=== PATIENT | female | born 1970 | race Caucasian/White ===

== ENCOUNTER → 2018-10-16 14:48 | Outpatient (CLI) | payer BC, SELFPAY ==
--- NOTE | 2018-10-16 14:52 | BI_ITS ---
MAMMOGRAPHY - BILATERAL SCREENING REASON FOR EXAM: Female, 47 years old. Routine annual screening examination. PERTINENT HISTORY: Sister with breast cancer. Mother with breast cancer. Grandmother with breast cancer. TECHNIQUE: Digital bilateral breast tram (3D mammographic acquisition) in the CC and MLO projections. 2-D mediolateral oblique (MLO) and craniocaudad (CC) views of both breasts were obtained. CAD: Full Field Digital Mammography with Computer Added Detection was performed. COMPARISON: Comparison is made with prior study dated May 05, 2017 and August 12, 2017. FINDINGS: Breast Composition: The breasts are extremely dense, which lowers the sensitivity of mammography. There are no dominant masses or suspicious calcifications. Stable appearance of the scattered bilateral microcalcifications worse in the right breast. No other significant abnormalities are identified. There has been no significant change since the prior study. BI/SCREEN MAMM (CAD) W/TRAM BILAT IMPRESSION: Stable bilateral screening mammogram. Yearly follow-up mammogram recommended. (A) ASSESSMENT CATEGORY: BIRADS Category 2: Benign. A letter regarding these results will be sent to the patient by the facility within 30 days. Approximately 10% of breast cancers are not detected by mammography. A normal mammogram should not delay biopsy of a clinically suspicious abnormality. [id number] Electronically Signed: Ranjit Vásquez, at 16:01 EDT , Service support ,
== END ==
PROVIDERS: Family Provider Family Medicine; PCP Family Medicine; Referring Provider Surgery; Visit Provider Surgery
DX: Z12.31 Encounter for screening mammogram for malignant neoplasm of breast (principal)
CPT/HCPCS: 77063; 77067

== ENCOUNTER → 2018-11-24 | Outpatient (CLI) | payer BC, SELFPAY ==
[2018-11-24 13:56] LABS: Hematocrit 40.1 % (37-47); Hemoglobin 13.3 g/dl (12.0-15.0); Mean Corp Hgb Conc 33.2 g/gl (32-36); Mean Corpuscular Hgb 30.4 pg (27.0-32.0); Mean Corpuscular Volume 91.6 fL (81-99); Mean Platelet Vol. 9.7 fl (6.2-12.0); Platelet Count 303 K/mm3 (150-450); RBC Distribution Width CV 12.4 % (11.6-14.6); RBC Distribution Width SD 41.8 fl (35.1-43.9); Red Blood Count 4.38 M/mm3 (4.2-5.4)
[2018-11-24 14:04] LABS: Scan Indicated on CBC? Y/N NO
[2018-11-24 14:34] LABS: Hemoglobin A1c 5.1 % (4.2-6.3)
[2018-11-24 14:48] LABS: Estradiol 327.2 pg/mL; Free T3 2.6 pg/mL (2.18-3.98); T4 Free Direct 0.87 ng/dL (0.76-1.46)
[2018-11-25 08:45] LABS: DHEA Sulfate 70.6 ug/dL (41.2-243.7)
[2018-11-28 16:55] LABS: HPV Reflexed? NOT INDICATED
== END | disposition home or self-care (01) ==
LOC: WOBLAB 11:42
PROVIDERS: Visit Provider Obstetrics & Gynecology
DX: L65.9 Nonscarring hair loss, unspecified (principal); R53.83 Other fatigue; Z12.4 Encounter for screening for malignant neoplasm of cervix
CPT/HCPCS: 36415; 82533; 82627; 82670; 83036; 84144; 84403; 84439; 84443; 84481; 85027; 88175; 82626; G0145

== ENCOUNTER → 2018-12-04 15:39 | Outpatient (CLI) | payer BC, SELFPAY ==
[2018-12-04 17:36] LABS: Estradiol 158.2 pg/mL
[2018-12-04 17:42] LABS: Progesterone Level 12.02 ng/mL (See Comment)
[2018-12-06 13:26] LABS: Sex Hormone-binding Globulin 148.9 nmol/L (17.3-125.0)
== END ==
PROVIDERS: Visit Provider Obstetrics & Gynecology
DX: R10.84 Generalized abdominal pain (principal)
CPT/HCPCS: 36415; 82670; 84144; 84270; 84403

== ENCOUNTER → 2018-12-14 | Outpatient (CLI) | payer BC, SELFPAY ==
[2018-12-14 17:59] LABS: Estradiol 31.2 pg/mL; Follicle Stimulating Hormone 15.2 mIU/mL
== END | disposition home or self-care (01) ==
PROVIDERS: Visit Provider Obstetrics & Gynecology
DX: N94.3 Premenstrual tension syndrome (principal)
CPT/HCPCS: 36415; 82670; 83001

== ENCOUNTER → 2018-12-29 | Outpatient (CLI) | payer BC, SELFPAY ==
[2018-12-29 11:11] LABS: Insulin 6.8 mU/L (2.6-37.6)
[2018-12-29 11:43] LABS: Estradiol 130.2 pg/mL; Free T3 2.7 pg/mL (2.18-3.98); Glucose 74 mg/dL (74-106); Thyroid Stim Hormone (TSH) 1.01 uIU/mL (0.358-3.74)
[2018-12-31 13:29] LABS: DHEA Sulfate 850.5 ug/dL (41.2-243.7)
== END | disposition home or self-care (01) ==
LOC: WOBLAB 10:06
PROVIDERS: Visit Provider Obstetrics & Gynecology
DX: N94.3 Premenstrual tension syndrome (principal)
CPT/HCPCS: 36415; 82533; 82627; 82670; 82947; 83036; 83525; 84144; 84403; 84439; 84443; 84481; 82626

== ENCOUNTER → 2019-02-06 | Outpatient (CLI) | payer BC, SELFPAY ==
[2019-02-06 14:42] LABS: Estradiol 89.6 pg/mL; Follicle Stimulating Hormone 6.7 mIU/mL
[2019-02-07 11:04] LABS: DHEA Sulfate 71.6 ug/dL (41.2-243.7)
== END | disposition home or self-care (01) ==
LOC: WOBLAB 13:09
PROVIDERS: Visit Provider Obstetrics & Gynecology
DX: R10.84 Generalized abdominal pain (principal); R79.89 Other specified abnormal findings of blood chemistry
CPT/HCPCS: 36415; 82627; 82670; 83001; 82626

== ENCOUNTER → 2019-10-18 10:55 | Outpatient (CLI) | payer BC, SELFPAY ==
--- NOTE | 2019-10-18 10:58 | BI_ITS ---
MAMMOGRAPHY - BILATERAL SCREENING REASON FOR EXAM: Female, 48 years old. Routine annual screening examination. PERTINENT HISTORY: Sister with breast cancer. Mother with breast cancer. Grandmother with breast cancer. TECHNIQUE: Digital bilateral breast tram (3D mammographic acquisition) in the CC and MLO projections. 2-D mediolateral oblique (MLO) and craniocaudad (CC) views of both breasts were obtained. CAD: Full Field Digital Mammography with Computer Added Detection was performed. COMPARISON: Comparison is made with prior examination dated October 16, 2018 and August 12, 2017. FINDINGS: Breast Composition: The breasts are extremely dense, which lowers the sensitivity of mammography. There are no dominant masses or suspicious calcifications. Stable scattered calcifications. No other significant abnormalities are identified. There has been no significant change since the prior study. BI/SCREEN MAMM (CAD) W/TRAM BILAT IMPRESSION: Stable bilateral screening mammogram. Yearly follow-up mammogram recommended. (A) ASSESSMENT CATEGORY: BIRADS Category 2: Benign. A letter regarding these results will be sent to the patient by the facility within 30 days. Approximately 10% of breast cancers are not detected by mammography. A normal mammogram should not delay biopsy of a clinically suspicious abnormality. [id number] Electronically Signed: Ranjit Vásquez, at 13:49 EDT , Service support ,
== END ==
PROVIDERS: PCP Family Medicine; Referring Provider Obstetrics & Gynecology; Visit Provider Obstetrics & Gynecology
DX: Z12.31 Encounter for screening mammogram for malignant neoplasm of breast (principal)
CPT/HCPCS: 77063; 77067

== ENCOUNTER → 2019-12-07 11:16 | Outpatient (CLI) | payer BC, SELFPAY ==
--- NOTE | 2019-12-07 11:30 | MRI_ITS ---
STUDY: BILATERAL BREAST MR WITHOUT AND WITH CONTRAST REASON FOR EXAM: Female, 49 years old. Dense breast tissue with family history of breast cancer. TECHNIQUE: Multi-sequence multi-echo imaging of both breasts was performed with a dedicated breast coil. T1-weighted and T2-weighted images were performed before the administration of contrast. T1-weighted images were also performed after the administration of 11 mL of Dotarem contrast IV without complications. COMPARISON: Mammograms dated October 18, 2019 and October 16, 2018. FINDINGS: RIGHT BREAST: The breast tissue is heterogeneously dense with moderate background enhancement. Multiple cysts randomly distributed. There are no abnormal enhancing masses or areas of non-mass enhancement in the right breast. LEFT BREAST: The breast tissue is heterogeneously dense with moderate background enhancement. Multiple cysts randomly distributed. There are no abnormal enhancing masses or areas of non-mass enhancement in the left breast. There are no enlarged or abnormal lymph nodes. There is no abnormality in the visualized regions of the chest or liver. MRI/Breast Bilateral W/O and W IMPRESSION: Dense fibroglandular tissue with multiple bilateral cysts. Yearly follow-up mammogram recommended. CATEGORY: BIRADS Category 2: Benign. A letter regarding these results will be sent to the patient by the facility within 30 days. Electronically Signed: Yaron Stark MD at 14:13 EDT , Service support ,
== END ==
PROVIDERS: PCP Family Medicine; Referring Provider Obstetrics & Gynecology; Visit Provider Obstetrics & Gynecology
DX: Z80.3 Family history of malignant neoplasm of breast (principal)
CPT/HCPCS: 77049; A9575; A4216; C8908

== ENCOUNTER → 2020-09-05 09:44 | Outpatient (CLI) | payer BC, SELFPAY ==
[2020-09-05 11:55] LABS: Progesterone Level 1.83 ng/mL (See Comment)
[2020-09-05 11:58] LABS: SARS-COV-2 TOTAL ABS Reactive (Nonreactive)
[2020-09-05 11:59] LABS: Estradiol 186.1 pg/mL; Follicle Stimulating Hormone 3.8 mIU/mL; Free T3 3.1 pg/mL (2.18-3.98); Luteinizing Hormone 3.1 mIU/mL; T4 Free Direct 0.83 ng/dL (0.76-1.46); Thyroid Stim Hormone (TSH) 0.97 uIU/mL (0.358-3.74)
[2020-09-06 11:51] LABS: Sex Hormone-binding Globulin 94.7 nmol/L (17.3-125.0)
== END ==
PROVIDERS: PCP Family Medicine; Visit Provider Obstetrics & Gynecology
DX: Z20.828 Contact with and (suspected) exposure to other viral communicable diseases (principal); E03.9 Hypothyroidism, unspecified; N92.6 Irregular menstruation, unspecified
CPT/HCPCS: 36415; 82627; 82670; 83001; 83002; 84144; 84270; 84403; 84439; 84443; 84481; 86769; 82626

== ENCOUNTER → 2021-01-06 12:12 | Outpatient (CLI) | payer BC, SELFPAY ==
--- NOTE | 2021-01-06 12:14 | BI_ITS ---
MAMMOGRAPHY - BILATERAL SCREENING REASON FOR EXAM: Female, 50 years old. Routine annual screening examination. PERTINENT HISTORY: Sister with breast cancer. Mother with breast cancer. Grandmother with breast cancer. TECHNIQUE: Digital bilateral breast tram (3D mammographic acquisition) in the CC and MLO projections. 2-D mediolateral oblique (MLO) and craniocaudad (CC) views of both breasts were obtained. CAD: Full Field Digital Mammography with Computer Added Detection was performed. COMPARISON: Comparison is made with prior study dated 10/18/2019 and 10/16/2018. FINDINGS: Breast Composition: The breasts are extremely dense, which lowers the sensitivity of mammography. There is a 7.8 mm x 12.5 mm nodule in the retroareolar region of the left breast. A similar appearing nodule measuring 7.2 mm x 8 mm is also seen in the retroareolar region of the left breast. Correlation with ultrasound is recommended. No other significant abnormalities are identified. BI/SCRN MAMM (CAD)W/TRAM BILAT IMPRESSION: There are 2 well-defined nodules in the retroareolar region of the left breast as described. Correlation with ultrasound is recommended. ASSESSMENT CATEGORY: BIRADS Category 0: Incomplete. Need additional imaging evaluation. A letter regarding these results will be sent to the patient by the facility within 30 days. Approximately 10% of breast cancers are not detected by mammography. A normal mammogram should not delay biopsy of a clinically suspicious abnormality. [id number] Electronically Signed: Ranjit Vásquez MD at 14:41 EDT , Service support ,
== END ==
PROVIDERS: PCP Family Medicine; Referring Provider Obstetrics & Gynecology; Visit Provider Obstetrics & Gynecology
DX: Z12.31 Encounter for screening mammogram for malignant neoplasm of breast (principal)
CPT/HCPCS: 77063; 77067

== ENCOUNTER → 2021-01-07 13:04 | Outpatient (CLI) | payer BC, SELFPAY ==
--- NOTE | 2021-01-07 13:06 | US_ITS ---
STUDY: ULTRASOUND BREAST - LEFT REASON FOR EXAM: Female, 50 years old. Abnormal screening mammogram. TECHNIQUE: Axial and longitudinal images of the LEFT breast were performed with a high resolution ultrasound transducer. # OF IMAGES: 26 COMPARISON: Comparison is made with prior mammogram dated 01/06/2021 and prior sonogram dated 05/31/2017. FINDINGS: LEFT Breast: Multiple cysts are seen in the retroareolar region of the breast. The largest cyst measures 1.4 cm x 1.6 x 0.9 cm. This is at the 11 o''clock position of the breast at the 1 cm from the nipple. There is also evidence of a 1 cm x 1.2 cm x 0.6 cm cyst at the 3 o''clock position of the breast at 1 cm from the nipple. US/Breast Limited Unilateral IMPRESSION: Retroareolar cysts. ASSESSMENT CATEGORY: BIRADS Category 2: Benign. A letter regarding these results will be sent to the patient by the facility within 30 days. Electronically Signed: Ranjit Vásquez MD at 14:08 EDT , Service support ,
== END ==
PROVIDERS: PCP Family Medicine; Referring Provider Obstetrics & Gynecology; Visit Provider Obstetrics & Gynecology
DX: N63.20 Unspecified lump in the left breast, unspecified quadrant (principal)
CPT/HCPCS: 76642

== ENCOUNTER → 2021-05-06 16:49 | Outpatient (CLI) | payer BC, SELFPAY ==
[2021-05-08 22:06] LABS: Chlamydia By Nucleic Acid AMP Negative (Negative)
[2021-05-08 22:40] LABS: Gonococcus By Nucleic Acid AMP Negative (Negative)
[2021-05-12 16:59] LABS: HPV APTIMA, High Risk Negative (Negative)
[2021-05-12 17:00] LABS: HPV Reflexed? YES, CHARGE PATIENT
== END ==
PROVIDERS: PCP Family Medicine; Visit Provider Obstetrics & Gynecology
DX: Z12.4 Encounter for screening for malignant neoplasm of cervix (principal); Z11.3 Encounter for screening for infections with a predominantly sexual mode of transmission
CPT/HCPCS: 87491; 87591; 87624; 88175; G0145

== ENCOUNTER → 2021-06-19 12:44 | Outpatient (CLI) | payer BC, SELFPAY ==
--- NOTE | 2021-06-19 13:00 | MRI_ITS ---
STUDY: BILATERAL BREAST MR WITHOUT AND WITH CONTRAST REASON FOR EXAM: Female, 50 years old. Fibroadenosis. Multiple cysts. Family history of breast cancer, mother at age 65 and sister at age 50. Paternal and maternal grandmothers in seventh decade. TECHNIQUE: Multi-sequence multi-echo imaging of both breasts was performed with a dedicated breast coil. T1-weighted and T2-weighted images were performed before the administration of contrast. T1-weighted images were also performed after the administration of 11 cc of Dotarem contrast without complications. COMPARISON: Screening mammogram dated 01/06/2021. Left breast ultrasound dated 01/08/2020. FINDINGS: RIGHT BREAST: The breast tissue is heterogeneously dense with moderate background enhancement. Multiple cysts of varying size, the largest of which is at the 12 o''clock position. There are no abnormal enhancing masses or areas of non-mass enhancement in the right breast. LEFT BREAST: The breast tissue is heterogeneously dense with moderate background enhancement. Multiple cysts of varying size. There are no abnormal enhancing masses or areas of non-mass enhancement in the left breast. There are no enlarged or abnormal lymph nodes. There is no abnormality in the visualized regions of the chest or liver. MRI/Breast Bilateral W/O and W IMPRESSION: Multiple cysts of varying size bilaterally. No other abnormality. Yearly screening mammogram recommended. CATEGORY: BIRADS Category 2: Benign. A letter regarding these results will be sent to the patient by the facility within 30 days. Electronically Signed: Yaron Stark MD at 10:45 EST , Service support ,
== END ==
PROVIDERS: PCP Family Medicine; Visit Provider Obstetrics & Gynecology
DX: N60.29 Fibroadenosis of unspecified breast (principal); Z80.3 Family history of malignant neoplasm of breast
CPT/HCPCS: 77049; A9575; C8908

== ENCOUNTER → 2021-12-18 | Outpatient (CLI) | payer BC, SELFPAY ==
[2021-12-25 08:15] LABS: HPV APTIMA, High Risk Negative (Negative)
== END | disposition home or self-care (01) ==
LOC: LABSPEC 14:22
PROVIDERS: PCP Family Medicine; Visit Provider Obstetrics & Gynecology
DX: Z12.4 Encounter for screening for malignant neoplasm of cervix (principal)
CPT/HCPCS: 87624; 88175; G0145

== ENCOUNTER → 2022-01-08 | Outpatient (CLI) | payer BC, SELFPAY ==
--- NOTE | 2022-01-08 11:20 | BI_ITS ---
MAMMOGRAPHY - BILATERAL SCREENING REASON FOR EXAM: Female, 51 years old. Routine annual screening examination. PERTINENT HISTORY: Sister with breast cancer. Mother with breast cancer. Grandmother with breast cancer. TECHNIQUE: Digital bilateral breast tram (3D mammographic acquisition) in the CC and MLO projections. 2-D mediolateral oblique (MLO) and craniocaudad (CC) views of both breasts were obtained. CAD: Full Field Digital Mammography with Computer Added Detection was performed. COMPARISON: Comparison is made with prior study dated 01/06/2021 and 10/18/2019. FINDINGS: Breast Composition: The breasts are extremely dense, which lowers the sensitivity of mammography. There is a 1.2 cm well-defined nodular density in the upper the lateral aspect of the left breast. Prior MRI demonstrated cysts. No other significant abnormalities are identified. There has been no significant change since the prior study. BI/SCRN MAMM (CAD)W/TRAM BILAT IMPRESSION: Stable bilateral screening mammogram. Yearly follow-up mammogram recommended. (A) ASSESSMENT CATEGORY: BIRADS Category 2: Benign. A letter regarding these results will be sent to the patient by the facility within 30 days. Approximately 10% of breast cancers are not detected by mammography. A normal mammogram should not delay biopsy of a clinically suspicious abnormality. [id number] Electronically Signed: Ranjit Vásquez MD at 12:22 EDT ,
== END | disposition home or self-care (01) ==
LOC: OPBI 11:15
PROVIDERS: PCP Family Medicine; Referring Provider Obstetrics & Gynecology; Visit Provider Obstetrics & Gynecology
DX: Z12.31 Encounter for screening mammogram for malignant neoplasm of breast (principal)
CPT/HCPCS: 77063; 77067

== ENCOUNTER → 2022-06-04 | Outpatient (CLI) | payer BC, SELFPAY ==
--- NOTE | 2022-06-04 11:30 | MRI_ITS ---
STUDY: BILATERAL BREAST MR WITHOUT AND WITH CONTRAST REASON FOR EXAM: Female, 51 years old. Family history of breast cancer in mother and grandmother. Dense breasts. TECHNIQUE: Multi-sequence multi-echo imaging of both breasts was performed with a dedicated breast coil. T1-weighted and T2-weighted images were performed before the administration of contrast. T1-weighted images were also performed after the intravenous administration of 12ml of Clariscan. COMPARISON: Bilateral mammogram dated January 08, 2022. Prior breast MR dated June 19, 2021. FINDINGS: RIGHT BREAST: The breast tissue is The breasts are heterogenously dense, which may obscure small masses with moderate background enhancement. Multiple cysts of varying size, the largest of which is at approximately the 12:00 position. There are no abnormal enhancing masses or areas of non-mass enhancement in the right breast. LEFT BREAST: The breast tissue is The breasts are heterogenously dense, which may obscure small masses with moderate background enhancement. Multiple cysts of varying sizes, the largest of which is at the 12:00 position and measures approximately 11 mm in widest diameter. There are no abnormal enhancing masses or areas of non-mass enhancement in the left breast. There are no enlarged or abnormal lymph nodes. There is no abnormality in the visualized regions of the chest or liver. MRI/Breast Bilateral W/O and W IMPRESSION: Dense fibroglandular tissue with moderate background enhancement. Multiple cysts of varying size in both breasts. No abnormal enhancing masses and no suspicious axillary adenopathy. Yearly follow-up mammogram recommended. Screening mammogram can be alternated with breast MRI with contrast, given the patient''s strong family history of breast cancer. CATEGORY: BIRADS Category 2: Benign. A letter regarding these results will be sent to the patient by the facility within 30 days. Electronically Signed: Yaron Stark, at 10:16 EST ,
== END | disposition home or self-care (01) ==
LOC: MRI 11:18
PROVIDERS: PCP Family Medicine; Visit Provider Obstetrics & Gynecology
DX: Z12.39 Encounter for other screening for malignant neoplasm of breast (principal); Z84.89 Family history of other specified conditions
CPT/HCPCS: 77049; A9575; A4216; C8908

== ENCOUNTER → 2023-01-31 | Outpatient (CLI) | payer BC, SELFPAY ==
--- NOTE | 2023-01-31 13:20 | BI_ITS ---
MAMMOGRAPHY - BILATERAL SCREENING REASON FOR EXAM: Female, 52 years old. Routine annual screening examination. PERTINENT HISTORY: Sister with breast cancer. Mother with breast cancer. Grandmother with breast cancer. TECHNIQUE: Digital bilateral breast tram (3D mammographic acquisition) in the CC and MLO projections. 2-D mediolateral oblique (MLO) and craniocaudad (CC) views of both breasts were obtained. CAD: Full Field Digital Mammography with Computer Added Detection was performed. COMPARISON: Comparison is made with prior study dated January 08, 2022 and January 06, 2021. FINDINGS: Breast Composition: The breasts are extremely dense, which lowers the sensitivity of mammography. There are no dominant masses or suspicious calcifications. Stable 1.2 cm well-defined nodule in the upper lateral aspect of the left breast. This was demonstrated to be a cyst on prior MRI examination. No other significant abnormalities are identified. There has been no significant change since the prior study. BI/SCRN MAMM (CAD)W/TRAM BILAT IMPRESSION: Stable bilateral screening mammogram. Yearly follow-up mammogram recommended. (A) ASSESSMENT CATEGORY: BIRADS Category 2: Benign. A letter regarding these results will be sent to the patient by the facility within 30 days. Approximately 10% of breast cancers are not detected by mammography. A normal mammogram should not delay biopsy of a clinically suspicious abnormality. [id number] Electronically Signed: Ranjit Vásquez MD at 15:19 EDT ,
== END | disposition home or self-care (01) ==
LOC: OPBI 13:18
PROVIDERS: PCP Family Medicine; Referring Provider Obstetrics & Gynecology; Visit Provider Obstetrics & Gynecology
DX: Z12.31 Encounter for screening mammogram for malignant neoplasm of breast (principal)
CPT/HCPCS: 77063; 77067

== ENCOUNTER → 2023-09-22 | Outpatient (CLI) | payer MEDICAID, SELFPAY ==
[2023-09-22 12:25] LABS: Insulin 7.8 mU/L (2.6-37.6); Vitamin D,25 Hydroxy 73.7 ng/mL
[2023-09-22 12:28] LABS: Hemoglobin A1c 5.7 % (3.8-5.6)
[2023-09-22 12:39] LABS: CRP < 2.90 mg/L (0.0-3.0); Cholesterol 203 mg/dL (200); Glucose 86 mg/dL (74-106); High Density Lipoprotein 73 mg/dL; Rheumatoid Factor < 10.0 IU/mL (<15); Triglycerides 64 mg/dL; Very Low Density Lipoprotein 13 mg/dL (5-40)
[2023-09-22 12:46] LABS: Erythrocyte Sedimentation Rate 2 mm/hr (0-30)
== END | disposition home or self-care (01) ==
PROVIDERS: PCP Family Medicine; Referring Provider Obstetrics & Gynecology; Visit Provider Obstetrics & Gynecology
DX: E55.9 Vitamin D deficiency, unspecified (principal); M25.542 Pain in joints of left hand; M25.541 Pain in joints of right hand; Z13.1 Encounter for screening for diabetes mellitus; Z13.220 Encounter for screening for lipoid disorders
CPT/HCPCS: 36415; 80061; 82306; 82533; 82947; 83036; 83525; 85652; 86140; 86431

== ENCOUNTER → 2023-09-29 | Outpatient (CLI) | payer MEDICAID, SELFPAY ==
--- NOTE | 2023-09-29 13:23 | MRI_ITS ---
STUDY: BILATERAL BREAST MR WITHOUT AND WITH CONTRAST REASON FOR EXAM: Female, 52 years old. Family history of breast neoplasm. Breast cancer in mother and grandmother. Dense fibroglandular tissue on mammography. TECHNIQUE: Multi-sequence multi-echo imaging of both breasts was performed with a dedicated breast coil. T1-weighted and T2-weighted images were performed before the administration of contrast. T1-weighted images were also performed after the intravenous administration of 13 cc of Clariscan contrast. COMPARISON: Bilateral screening mammogram dated 01/31/2023 and prior breast MRI with contrast dated 06/04/2022. FINDINGS: RIGHT BREAST: Markedly dense fibroglandular tissue with minimal background enhancement. No abnormal enhancing masses or areas of non-mass enhancement in the right breast. LEFT BREAST: Markedly dense fibroglandular tissue with minimal background enhancement. No abnormal enhancing masses or areas of non-mass enhancement in the right breast. No enlarged or abnormal lymph nodes. No abnormality in the visualized regions of the chest or liver. MRI/Breast Bilateral W/O and W IMPRESSION: Stable markedly dense fibroglandular tissue with minimal background enhancement. No other abnormality present. Yearly follow-up breast MRI without and with contrast for surveillance would be appropriate, given the patient''s strong family history of breast cancer. CATEGORY: BIRADS Category 2: Benign. A letter regarding these results will be sent to the patient by the facility within 30 days. Electronically Signed: Yaron Stark MD at 13:25 EST ,
== END | disposition home or self-care (01) ==
LOC: MRI 13:21
PROVIDERS: Visit Provider Obstetrics & Gynecology
DX: Z80.3 Family history of malignant neoplasm of breast (principal)
CPT/HCPCS: 77049; A9575; C8908

== ENCOUNTER → 2024-03-15 | Outpatient (CLI) | payer MEDICAID, SELFPAY ==
--- NOTE | 2024-03-15 12:06 | BI_ITS ---
MAMMOGRAPHY - BILATERAL SCREENING REASON FOR EXAM: Female, 53 years old. Routine annual screening examination. PERTINENT HISTORY: Sister with breast cancer. Mother with breast cancer. Grandmother with breast cancer. TECHNIQUE: Digital bilateral breast tram (3D mammographic acquisition) in the CC and MLO projections. 2-D mediolateral oblique (MLO) and craniocaudad (CC) views of both breasts were obtained. CAD: Full Field Digital Mammography with Computer Added Detection was performed. COMPARISON: Comparison is made with prior study January 31, 2023. FINDINGS: Breast Composition: The breasts are extremely dense, which lowers the sensitivity of mammography. There are no dominant masses or suspicious calcifications. No other significant abnormalities are identified. There has been no significant change since the prior study. BI/SCRN MAMM (CAD)W/TRAM BILAT IMPRESSION: Stable bilateral screening mammogram. Yearly follow-up mammogram recommended. (A) ASSESSMENT CATEGORY: BIRADS Category 1: Negative. A letter regarding these results will be sent to the patient by the facility within 30 days. Approximately 10% of breast cancers are not detected by mammography. A normal mammogram should not delay biopsy of a clinically suspicious abnormality. [id number] Electronically Signed: Ranjit Vásquez MD at 12:45 EDT ,
== END | disposition home or self-care (01) ==
PROVIDERS: Referring Provider Obstetrics & Gynecology; Visit Provider Obstetrics & Gynecology
DX: Z12.31 Encounter for screening mammogram for malignant neoplasm of breast (principal)
CPT/HCPCS: 77063; 77067

== ENCOUNTER → 2024-10-25 | Outpatient (CLI) | payer MEDICAID, SELFPAY ==
--- NOTE | 2024-10-25 11:30 | MRI_ITS ---
PROCEDURE: BREAST BILATERAL W/O AND W 10/25/2024 REASON FOR EXAM: 54-year-old female presents for high-risk screening breast MRI. Patient has dense breast tissue and strong family history of breast cancer. Family history of breast cancer in her mother at age 65 with recurrence, her sister at age 50, paternal grandmother in her 60s and maternal grandmother at age 65. TECHNIQUE: Bilateral breast MRI using a dedicated bilateral breast coil before and following intravenous contrast. Images reviewed with subtraction and DynaCAD. CONTRAST: 13 IV Clariscan COMPARISON: No priors available. FINDINGS: Amount of Fibroglandular Tissue: Heterogeneous fibroglandular tissue. Background Parenchymal Enhancement: Marked. This decreases the sensitivity of breast MRI. RIGHT Breast: No suspicious mass or non-mass enhancement. LEFT Breast: No suspicious mass or non-mass enhancement. Other Findings: No suspicious axillary or internal mammary lymph nodes. There is a partially visualized large T2 hyperintense cystic mass in the left hemiabdomen, incompletely evaluated on this examination. MRI/Breast Bilateral W/O and W IMPRESSION: 1. There is no MRI evidence of malignancy in either breast. 2. Partially visualized large T2 hyperintense cystic mass in the left hemiabdo men, incompletely evaluated on this examination. Recommend follow-up CT with contrast of the abdomen and pelvis for further eval uation. OVERALL BI-RADS CATEGORY: BI-RADS 1: NEGATIVE Reading Location: [facility]
== END | disposition home or self-care (01) ==
DX: Z80.3 Family history of malignant neoplasm of breast (principal)
CPT/HCPCS: 77049; A9575; A4216; C8908

== ENCOUNTER → 2025-03-29 | Outpatient (CLI) | payer MEDICAID, SELFPAY ==
--- NOTE | 2025-03-29 15:41 | BI_ITS ---
EXAM: SCRN MAMM (CAD)W/TRAM BILAT DATE: 03/29/2025 CLINICAL HISTORY: F, Age 54 y/o , SCREENING Patient's sister, mother and grandmother were diagnosed with breast cancer. TECHNIQUE: Procedure Code: [id number] Modality: MG Procedure: SCRN MAMM (CAD)W/TRAM BILAT COMPARISON: Prior mammogram exam(s) dated 03/15/2024 and 01/31/2023. A breast MRI dated 09/2024 was also reviewed.. FINDINGS: TISSUE DENSITY: The breasts are extremely dense, which lowers the sensitivity of mammography. Bilateral Breast Mammographic Findings: No significant masses, calcifications or other abnormalities are identified. Benign-appearing round microcalcifications are scattered throughout breasts. The calcifications have a benign appearance and most likely represent fibrocystic type calcifications or sclerosing adenosis type calcifications. BI/SCRN MAMM (CAD)W/TRAM BILAT IMPRESSION: Benign screening mammogram. Due to the extremely dense breast tissue and stron g family history of breast cancer, patient may benefit by having a bilateral breast MRI examination or a complete right breast ultrasound examination to exclude underlying masses which may be obscured in this patient with dense breast tissue. OVERALL FINAL ASSESSMENT BI-RADS 2: BENIGN RECOMMENDATION: Routine annual follow-up in 1 Year A letter with findings and recommendations will be mailed to the patient. Reading Location: [id number]
== END | disposition home or self-care (01) ==
LOC: OPBI 15:39
PROVIDERS: Referring Provider Nurse Practitioner Women's Health; Visit Provider Nurse Practitioner Women's Health
DX: Z01.419 Encounter for gynecological examination (general) (routine) without abnormal findings (principal); Z12.31 Encounter for screening mammogram for malignant neoplasm of breast
CPT/HCPCS: 77063; 77067